=== PATIENT | female | born 1985 | race Caucasian/White ===

== ENCOUNTER 2016-10-08 19:34 | Inpatient (IN) | payer OTHER ==
[~2016-10-08] VITALS: Ht 165.1 cm; Wt 86.6 kg
[2016-10-08] MEDS ORDERED: Ondansetron 2 mg/mL 2 mL Inj IVPUSH PRN ×2 (19:50→21:50)
[2016-10-08] MEDS ORDERED: Carboprost 250 mCg/mL Inj IM PRN (19:50)
[2016-10-08] MEDS ORDERED: Oxytocin 10 Unit/mL Inj IM PRN (19:50)
[2016-10-08] MEDS ORDERED: Methylergonovine 0.2 mg/mL Inj IM PRN (19:50)
[2016-10-08] MEDS ORDERED: Sodium Chloride LOK Flush 10 mL Syringe IVFLUSH PRN (19:50)
[2016-10-08] MEDS ORDERED: Hemorrhage Kit, Post Partum XX ONE (19:50)
[2016-10-08] MEDS ORDERED: Lactated Ringer's 1,000 ML IV PRN (19:50)
[2016-10-08] MEDS ORDERED: fentaNYL-PF 50 mCg/mL 2 mL Inj IVPUSH PRN (19:50)
[2016-10-08] MEDS ORDERED: Oxytocin 30 Units/500 mL LR 30 UNITS in IV Premix 1 EACH IV PRN (19:50)
[2016-10-08 20:19] LABS: Mean Corpuscular Hemoglobin 23.3 pg (27.0-35.0); Mean Corpuscular Volume 74.8 fL (81-100)
--- NOTE | 2016-10-08 21:48 | PCM.HPANE ---
Patient Data Surgeon Admitting Provider:Saqib Ramsey MD Attending Provider:Saqib Ramsey MD Primary Care Physician:Saqib Ramsey MD Other Provider: Reason for Visit Term Labor Check TERM LABOR CHECK Ht/WT & BMI Body Mass Index Allergies Coded Allergies: Penicillins (Verified Allergy, Unknown, 12/05/14) Diabetes History Hx Diabetes?: No History Cardiovascular History: Denies:: Congestive Heart Failure Hypertension Respiratory History: Denies:: Tuberculosis Hx Diabetes: No Hx Alcohol Use: NoHx Substance Use: No Smoking Status: Never Smoker Have You Smoked inLast 12 mo: No Stop/Bang Risk Assessment Category Category 1A: Patient has history of documented sleep apnea, and HAS NOT received any narcotic, sedative or anesthesia administration during this stay. Category 1B: Patient has history of documented sleep apnea, and HAS received any narcotic , sedative or anesthesia administration during this stay Category 2: Patient has SUSPECTED Obstructive Sleep Apnea, and HAS received any narcotic , sedative or anesthesia administration during this stay. Category 3: Patient has SUSPECTED Obstructive Sleep Apnea and HAS NOT received narcotic, sedative or anesthesia administration during this stay. Category 4: Outpatient in Procedural Areas with known sleep apnea or who screen positive for High Risk via the STOP/BANG questionnaire. Exam Exam General Appearance: Alert, Oriented X3, Cooperative, No Acute Distress HEENT/AIRWAY: MP 2 Lungs: Clear to Auscultation Heart: Exam Unremarkable Meds/Labs/Diagnostics Labs Test 10/08/16 20:00 White Blood Count 8.5th/mm3 (3.8-10.1) Red Blood Count 3.77mil/mm3 (3.90-5.20) Hemoglobin 8.8g/dL (12.0-15.6) Hematocrit 28.2% (35.0-46.0) Mean Corpuscular Volume 74.8fL (81-100) Mean Corpuscular Hemoglobin 23.3pg (27.0-35.0) Mean Corpuscular Hemoglobin Concent 31.2% (32.0-37.0) Red Cell Distribution Width 15.2% (12.3-15.4) Platelet Count 247bil/L (150-400) Hematology Comments Blood Urea Nitrogen 9mg/dL (6-20) Creatinine 0.57mg/dL (0.57-1.00) Uric Acid 5.0mg/dL (2.6-7.2) Aspartate Amino Transf (AST/SGOT) 19U/L (0-50) Alanine Aminotransferase (ALT/SGPT) 12U/L (0-32) Plan Impression Patient chart reviewed, patient interviewed and anesthestic plan with risks, benefits, and alternatives discussed, and informed consent obtained. ASA Physical Status: ASA2 Mod Systemic Disease Anesthetic Plan: Epidural Bene/Risks/Altern/Consents: Yes HP Complete Prior to Induction: Yes Mac Erickson MD Oct 08, 2016 21:48
[2016-10-08] MEDS ORDERED: Lactated Ringer's 1,000 ML IV SCH (21:49)
[2016-10-08] MEDS ORDERED: Lactated Ringer's 500 ML IV ONE (21:49)
[2016-10-08] MEDS ORDERED: fentaNYL 2 mCg/mL-Bupiv 0.125% 100 ML EPIDURAL SCH (21:50)
[2016-10-08] MEDS ORDERED: Atropine 1 mg/10 mL (Code) Syringe IVPUSH PRN (21:50)
[2016-10-08] MEDS ORDERED: EPHEDrine Sulfate 50 mg/mL Inj IVPUSH PRN (21:50)
[2016-10-09] MEDS ORDERED: Sodium Chloride LOK Flush 10 mL Syringe IVFLUSH SCH (00:30)
--- NOTE | 2016-10-09 00:48 | HP ---
[address] [address] HISTORY AND PHYSICAL PATIENT: RADHA HERNANDEZ : 1985 MR#: [id number] ADMIT: 10/08/2016 JOB ID: [id number] [facility] NOTE: DATE: 10/08/2016 SUBJECTIVE: The patient is a 30-year-old, AB1, single woman, with three prior vaginal deliveries. She has been followed prenatally at [facility], see record for details. Due date is October 19, 2016, placing the patient on day of admission at 38-3/7 weeks along. course has been uncomplicated. In general, note only 15 pounds of weight gain in the , appropriate fundal height growth, negative group B Strep test status, rubella immune status, and Rh positive status. The patient received flu vaccination and Tdap during . The patient was noted to be mildly anemic with hematocrit 30.7 on July 18, 2016, and she was asked to use iron supplementation and/or iron rich foods plus vitamin daily. The patient spontaneously ruptured membranes, clear fluid, this evening. She came into the Center and was admitted with ruptured membranes confirmed, plus early uterine contractions. She was admitted for observation and anticipated vaginal , and she would very much like to have epidural before delivery. PHYSICAL EXAMINATION: On admission, height 65 inches, weight 194 pounds at last check in the office, normal blood pressure at last check in the office, mild elevation on admission; for example, with diastolic reading of 89, yet then coming down. Afebrile. Neck: No thyromegaly. Lungs: Clear to auscultation and percussion. Heart: Regular in rate and rhythm. Abdomen: Fundal height at last check 38.5 cm, consistent with known gestational age, positive heartbeat. Pelvic examination: Cervix initially in the 2 cm range, 50% effacement, vertex, spontaneous rupture of membranes confirmed, clear fluid. IMPRESSION: 1. A 38-3/7 weeks on admission. 2. Spontaneous rupture of membranes, clear fluid. 3. Early uterine contractions. 4. Negative group B Strep test. 5. Rubella immune status. 6. Rh positive status. 7. Up to date with Tdap and flu vaccination. 8. Reproductive history: a. 1st -vaginal delivery of 7 pound 4 ounce baby, at 40+ weeks along, epidural. b. 2nd -36 week vaginal delivery of 6 pound 9 ounce baby, epidural. Spontaneous rupture of membranes. Proceeded labor. c. 3rd -miscarriage. d. 4th -39 week vaginal delivery, 7 pound 3 ounce baby, epidural. Spontaneous rupture of membranes before labor onset. Note she more rapid labor than others. e. 5th -current. 9. Desires tubal ligation following delivery, for planned laparoscopic tubal ligation at 6+ weeks , tentatively scheduled for November 28 of this year. 10. Mild anemia noted in the third trimester. 11. Increased weight, although only 15 pounds of weight gain during the . 12. PENICILLIN allergy "assumed" (the patient's twin is allergic to penicillin). 13. History of bladder infection. 14. Family history of hypertension (brother, great grandmother), cystic fibrosis (nephew, the patient reports that she tested negative for carrier status), other cancer (details?, who?), and twins (mother of baby is a twin). PLAN: The patient is admitted to [facility] in the evening of October 08, 2016, with spontaneous rupture of membranes and early uterine contractions at 38-1/2 along in . She has preferred epidural anesthesia. Anticipating vaginal .
[2016-10-09] MEDS ORDERED: Lactated Ringer's 1,000 ML IV SCH (02:22)
[2016-10-09] MEDS ORDERED: Benzocaine (Dermoplast) 20% 60 Gm Spray TOPICAL PRN (02:25)
[2016-10-09] MEDS ORDERED: Influenza (Adult) Vaccine 0.5 mL Syringe IM ONE (02:25)
[2016-10-09] MEDS ORDERED: Hemorrhage Kit, Post Partum XX ONE (02:25)
[2016-10-09] MEDS ORDERED: Witch Hazel-Glycerin Pads TOPICAL PRN (02:25)
[2016-10-09] MEDS ORDERED: Methylergonovine 0.2 mg/mL Inj IM PRN (02:25)
[2016-10-09] MEDS ORDERED: Carboprost 250 mCg/mL Inj IM PRN (02:25)
[2016-10-09] MEDS ORDERED: Measles-Mumps-Rubella Vaccine 0.5 mL Inj SUBQ ONE (02:25)
[2016-10-09] MEDS ORDERED: LANOlin HPA 7 Gm Ointment TOPICAL PRN (02:25)
[2016-10-09] MEDS ORDERED: Oxytocin 10 Unit/mL Inj IM PRN (02:25)
[2016-10-09] MEDS ORDERED: Oxytocin 30 Units/500 mL LR 30 UNITS in IV Premix 1 EACH IV PRN (02:25)
[2016-10-09] MEDS ORDERED: TdaP Vaccine 0.5 mL Inj IM ONE (02:25)
[2016-10-09] MEDS: HYDROcodone-APAP 5-325 mg Tablet PO PRN ×4 (09:23→21:45)
[2016-10-10] MEDS: HYDROcodone-APAP 5-325 mg Tablet PO PRN ×2 (03:37→08:20)
[2016-10-10 07:03] LABS: Mean Corpuscular Volume 75.8 fL (81-100)
[2016-10-10] MEDS ORDERED: IBUP-1827 PO (10:58)
[2016-10-10] MEDS ORDERED: HYDR-4003 PO (10:58)
--- NOTE | 2016-10-10 10:58 | PCM.DIOB ---
Obstetrical Disch Instruction Dates of Hospitalization Date of Hospital Admission Oct 08, 2016 at 19:47 Providers Admitting Physician: Saqib Ramsey MD Primary Care Physician: Saqib Ramsey MD Attending Physician: Saqib Ramsey MD Discharge Diagnosis Problems: (1) Status: Acute ICD Code: Z33.1 Diet Discharge Diet: No restrictions Activity Discharge Activity-General: Pelvic Rest for 6 weeks Dressing and Incisional Care Hygiene: May shower, Perineal care, Sitz bath, Dermoplast spray, Witch Jessica pads, Ice Follow Up Plan Follow-up appointment: Weeks (Follow up in 6 weeks for checkup) Call your provider for: Fever or Chills, Shortness of breath, Heavy vaginal bleeding, Red painful breasts Saqib Ramsey MD Oct 10, 2016 10:58
[2016-10-10] MEDS ORDERED: FERR-83 PO (11:06)
[2016-10-10 11:18] VITALS: BP 111/79; PULSE 88; RESP 18
--- NOTE | 2016-10-11 03:10 | OP ---
[address] [address] OPERATIVE REPORT PATIENT: RADHA HERNANDEZ : 1985 MR#: [id number] ADMIT: 10/08/2016 JOB ID: [id number] DATE OF SURGERY: 10/09/2016 SURGEON: PREOPERATIVE DIAGNOSIS(ES): POSTOPERATIVE DIAGNOSIS(ES): [facility] NOTE: The patient was followed prenatally per Dr. Ramsey, see record. She ruptured membranes spontaneously at approximately 38-1/2 weeks along in her and developed uterine contractions, then progressing intensity and frequency. Cervix dilated from 2 cm to 3 cm and epidural was provided for pain management. Labor then progressed relatively rapidly through the active phase of labor. See complete cervical dilatation. The patient then learned to push very well, steadily bringing down the head to and then delivery, followed directly by the shoulders, body and extremities. Baby was active, crying and vigorous. After a brief delay, umbilical cord was clamped and cut and infant was taken to the warmer for cleanup per patient request. Cord blood was obtained for routine studies. Placenta with membranes were spontaneously expelled, intact. Uterus contracted well with massage plus Pitocin infusion. Blood loss was in the 150 cc range. There were no lacerations noted. Instrument, needle and sponge counts were all found to be correct, and procedure was; thus, complete. It certainly is anticipated that mother and baby will do very well during the timeframe. Saqib Ramsey MD [facility] CENTERZunilda
--- NOTE | 2016-10-11 08:11 | DIS ---
[address] [address] DISCHARGE SUMMARY PATIENT: RADHA HERNANDEZ : 1985 MR#: [id number] ADMIT: 10/08/2016 JOB ID: [id number] DIS: 10/10/2016 DISCHARGE DIAGNOSES: 1. A 38-1/2 week , delivered. 2. Spontaneous rupture of membranes. 3. Spontaneous labor onset. 4. Chronic anemia during . PROCEDURE PERFORMED DURING HOSPITALIZATION: 1. Epidural anesthesia. 2. Vaginal delivery. HOSPITAL COURSE: This patient was admitted to [facility], and ultimately went on to deliver vaginally with epidural anesthesia early in the morning of October 09, 2016. During the timeframe, the patient did well, with stable vitals, afebrile, with reasonable bleeding, ambulating and voiding, with significant cramping while nursing particularly, for which she used ibuprofen and Vicodin, and without leg pain or shortness of breath, and handling baby well. She wished to be discharged to home on the first day, and her request was granted. Note that she did have admission hemoglobin 8.8, with known anemia during , although she did not take the recommended iron therapy. hemoglobin was 7.9. The patient was slightly dizzy initially, although improving, and there was no worrisome blood loss. She reported that she was willing to take iron therapy at home. DISCHARGE PROGRAM: The patient will call p.r.n., yet otherwise she will follow up at six weeks for checkup. Note that she also planned for laparoscopic tubal ligation, and this has been scheduled in November. She will observe pelvic rest for six weeks. DISCHARGE MEDICATIONS: Include Kalida, ibuprofen, and ferrous sulfate.
== END 2016-10-10 12:02 | disposition home or self-care (01) | DRG 560 ==
LOC: FBCO 19:34 → FBC 19:47
PROVIDERS: ADMIT Obstetrics & Gynecology; ATTEND Obstetrics & Gynecology
PROC: 10E0XZZ Delivery of Products of Conception, External Approach (ICD-10-PCS; principal; 2016-10-09)
DX: O99.02 Anemia complicating childbirth (principal); D64.9 Anemia, unspecified; Z37.0 Single live birth; Z3A.38 38 weeks gestation of pregnancy

== ENCOUNTER 2016-11-28 09:11 | Day surgery (SDC) | payer OTHER ==
--- NOTE | 2016-11-26 19:31 | HP PRE OP ---
[address] [address] PREOPERATIVE HISTORY AND PHYSICAL PATIENT: RADHA HERNANDEZ : 1985 MR#: [id number] ADMIT: 11/28/2016 JOB ID: [id number] IDENTIFICATION: The patient is a 30-year-old, G5, P4, AB 1, single woman. CHIEF COMPLAINT: Desires sterilization by bilateral salpingectomy. HISTORY OF PRESENT ILLNESS: This patient had vaginal , on October 09, 2016. She has been certain that she has not wanted additional children beyond the four that she has and her significant other is also certain. He has not been willing to do so vasectomy at this point in time, although he has considered it. They have agreed that she will proceed ahead with tubal ligation, understanding that it is a major surgery, with risks of bleeding, infection, wound problems, postoperative pain, injury to the urinary tract and bowel, anesthetic risks and potential need for laparotomy if some type of complication was to occur. They realize that there is thus not a guarantee that complications would not occur although typically this is an outpatient surgery. Note that they realize that there is a chance of sterilization failure although very unlikely in that she has requested bilateral salpingectomy as opposed to simply tubal ligation. She would very much like the tubes to be removed to help further reduce sterilization failure as well as to reduce the risk of adnexal cancer. She has understood that this would mean that there would be no tubes for reconstruction if she changed her mind although she is certain that she will not and she does appear to be a good sterilization candidate per discussion with her. She knows that in vitro fertilization would still be a consideration if she changed her mind but she is absolutely certain that she does not want to have additional children. In summary, then, the patient will be admitted to [facility] on November 28, 2016, on which day she will undergo laparoscopic bilateral salpingectomy. PHYSICAL EXAMINATION: On admission, weight 170 pounds. Blood pressure 120/78. Neck: No thyromegaly. Lungs clear to auscultation and percussion. Heart: Regular in rate and rhythm. Abdomen nontender, no mass. No surgical scarring. Pelvic examination: Vulva, vagina and cervix, no obvious epithelial abnormality. Bimanual examination: No obvious uterine or adnexal mass. IMPRESSION: 1. Desires sterilization by laparoscopic bilateral salpingectomy. 2. by 1-1/2 months, doing well. 3. Nursing mother (pumping). 4. Current control--condoms. 5. Reproductive history--vaginal delivery x4, one miscarriage. 6. History of cystitis. 7. Penicillin allergy concern per patient (patient's twin is allergic to penicillin). 8. Family history of hypertension (brother, great grandmother), cystic fibrosis (nephew, the patient reports that she tested negative for carrier status), other cancer (details?, who?), and twins (mother of baby is a twin), and penicillin allergy (patient's twin). PLAN: The patient will be admitted to [facility] on November 28, 2016, on which day she will undergo laparoscopic bilateral salpingectomy for sterilization per her request. Note that she has signed HS consent, sterilization consent for tubal ligation/tubal excision back on August 22, 2016, and thus the necessary at least 30 days have passed prior to performance of sterilization. [facility] authorization applies to bilateral salpingectomy per their report to our director day care center.
[2016-11-28] VITALS (10 sets, daily range): BP systolic 100–120; BP diastolic 64–82; PULSE 60–88; RESP 12–18; O2SAT 95–100
[~2016-11-28] VITALS: Ht 165.1 cm; Wt 73.5 kg
--- NOTE | 2016-11-28 07:42 | PCM.HPANE ---
Patient Data Surgeon Admitting Provider: Attending Provider:Saqib Ramsey MD Primary Care Physician:Farooq Parry MD Other Provider:Vandana [place] Anesthesia Reason for Visit Desires Sterilization Ht/WT & BMI Height (Feet): 5 Height (Inches): 5 Weight (Kilograms): 80 Body Mass Index 29.00 Allergies Coded Allergies: Penicillins (Verified Allergy, Unknown, UNKNOWN (FAMILY HX OF--TWIN ALLERGIC TO PCN), 11/27/16) Past Anesthesia History Anesthesia History: Denies:: Fam Anesthesia Reaction, Fam Malignant Hypertherm Diabetes History Hx Diabetes?: No MRSA MRSA: No Medications Discontinued Scripts Ferrous Sulfate 325 Mg [id number] Mg PO BID 90 Days Ref 1 Prov:Saqib Ramsey MD 10/10/16 Hydrocodone-Acetaminophen 5-325 mg 1 Each Tablet1-2 Tablet PO Q4H PRN For Mild Pain #30 TABLET Prov:Saqib Ramsey MD 10/10/16 Ibuprofen 600 Mg [id number] Mg PO Q6H PRN For Mild Pain #30 TABLET Prov:Saqib Ramsey MD 10/10/16 History History of ENT Problems?: Yes Hx of Heart Problems?: No Cardiovascular History: Denies:: Congestive Heart Failure Heart Murmur Hypertension Hx of Respiratory Problem?: No Respiratory History: Denies:: Tuberculosis Use of C-PAP Machine Hx Neurologic Problems?: No Hx of GI Problems?: No Hx of Problems?: Yes Genitourinary History: Positive for:: Urinary Tract Infection (HX OF cystitis) Female Hx: Denies:: Currently (S/P L&D 10/08/2016 HX MISSED AB ) Skin History: Denies:: History Skin Disorders? Pressure Ulcers Hx Musculoskeletal Problems?: No Hx of Psycho/Social Problems?: No Hx Surgeries?: No Hx Any Other Health Problems?: No Other History: Positive for:: Hospitalization (CHILDBIR[facility]) Denies:: Cancer Endocrine Disease Thyroid Disease Hx Diabetes: No Hx Alcohol Use: NoHx Substance Use: No Smoking Status: Never Smoker Have You Smoked inLast 12 mo: No Stop/Bang S-Snoring: Do You Snore Loudly: No T-Tired: feel tired, fatigued: No O-Obsered: Observed not breath: No P-Blood Pressure: treated: No B- Body Mass Index > 35 kg/m2: No A- Age over 50: No N- Neck Large Circumference: No G- Gender Male: No PRINCESS Total Score: 0 Risk Assessment Category Category 1A: Patient has history of documented sleep apnea, and HAS NOT received any narcotic, sedative or anesthesia administration during this stay. Category 1B: Patient has history of documented sleep apnea, and HAS received any narcotic , sedative or anesthesia administration during this stay Category 2: Patient has SUSPECTED Obstructive Sleep Apnea, and HAS received any narcotic , sedative or anesthesia administration during this stay. Category 3: Patient has SUSPECTED Obstructive Sleep Apnea and HAS NOT received narcotic, sedative or anesthesia administration during this stay. Category 4: Outpatient in Procedural Areas with known sleep apnea or who screen positive for High Risk via the STOP/BANG questionnaire. Exam Exam General Appearance: Alert, Oriented X3, Cooperative, No Acute Distress HEENT/AIRWAY: MP 1 Lungs: Normal Air Movement Heart: Regular Rate/Rhythm Plan Impression Patient chart reviewed, patient interviewed and anesthestic plan with risks, benefits, and alternatives discussed, and informed consent obtained. ASA Physical Status: ASA1 Normal Healthy Anesthetic Plan: GA Bene/Risks/Altern/Consents: Yes HP Complete Prior to Induction: Yes Lyubov Epperson DO Nov 28, 2016 07:42
[2016-11-28] MEDS ORDERED: fentaNYL-PF 50 mCg/mL 2 mL Inj ONE (09:12)
[2016-11-28] MEDS ORDERED: Dexamethasone 4 mg/mL Inj ONE (09:12)
[2016-11-28] MEDS ORDERED: Propofol 10,000 mCg/mL 20 mL Inj ONE (09:12)
[2016-11-28] MEDS ORDERED: Ondansetron 2 mg/mL 2 mL Inj ONE (09:12)
[2016-11-28] MEDS: Lactated Ringer's 1,000 ML IV SCH ×2 (09:23→11:13)
[2016-11-28] MEDS ORDERED: Bupivacaine-MPF 0.5% W/EPI 30 mL Inj INFILTRATE ONE (09:59)
[2016-11-28] MEDS ORDERED: Lactated Ringer's 500 ML IV PRN (11:08)
[2016-11-28] MEDS ORDERED: Lactated Ringer's 1,000 ML IV SCH (11:08)
[2016-11-28] MEDS ORDERED: fentaNYL-PF 50 mCg/mL 2 mL Inj IVPUSH PRN (11:10)
[2016-11-28] MEDS ORDERED: Ondansetron 2 mg/mL 2 mL Inj IVPUSH PRN ×2 (11:10→12:40)
[2016-11-28] MEDS ORDERED: HYDROmorphone 1 mg/mL Inj IVPUSH PRN ×2 (11:10→12:40)
[2016-11-28] MEDS ORDERED: MetoCLOpramide 5 mg/mL 2 mL Inj IVPUSH PRN ×2 (11:10→12:40)
[2016-11-28] MEDS ORDERED: Bupivacaine-MPF 0.5% W/EPI 30 mL Inj INJ ONE (11:45)
--- NOTE | 2016-11-28 13:40 | PCM.ANEP1 ---
Post Anesthesia Phase 1 PACU Phase 1 Assessment Vital Signs Vital Signs Date Time Temp Pulse Resp B/P Pulse Ox O2 Delivery O2 Flow Rate FiO2 11/28/16 13:15 36.4 63 12 103/64 98 Room Air 11/28/16 13:05 76 14 111/72 96 Room Air 11/28/16 13:00 36.3 78 18 100/82 95 Room Air 11/28/16 12:55 74 18 117/78 96 Room Air 11/28/16 12:50 84 17 110/75 96 Room Air 11/28/16 12:45 88 14 114/77 97 Room Air 11/28/16 12:40 88 12 120/77 99 Room Air 11/28/16 12:37 36.1 87 12 117/80 100 Simple Mask 8 11/28/16 09:34 36.2 60 17 104/69 100 Room Air Anesthetic Administered: GA Level of Alertness: Awake, talking SIVLERIO's with Equal Strength: Yes Pain: No Nausea or Vomiting: No Oxygen Delivery: Simple Mask Lungs: Normal Air Movement Complications: No Lyubov Epperson DO Nov 28, 2016 13:40
[2016-11-28] MEDS ORDERED: oxyCODONE-Acetamin 5-325 mg Tablet PO ONE (13:57)
[2016-11-28] MEDS ORDERED: oxyCODONE-Acetamin 5-325 mg Tablet PO PRN (14:00)
--- NOTE | 2016-11-29 23:58 | OP ---
[address] [address] OPERATIVE REPORT PATIENT: RADHA HERNANDEZ : 1985 MR#: [id number] ADMIT: 11/28/2016 JOB ID: [id number] DATE OF SURGERY: 11/28/2016 SURGEON: Saqib Ramsey MD ANESTHESIA: General. PREOPERATIVE DIAGNOSIS(ES): Desires sterilization by laparoscopic bilateral tubal excision (salpingectomies). POSTOPERATIVE DIAGNOSIS(ES): Desires sterilization by laparoscopic bilateral tubal excision (salpingectomies). PROCEDURE PERFORMED: Laparoscopic bilateral salpingectomies. FINDINGS AT SURGERY: Uterus, fallopian tubes and ovaries were normal. At procedure's close, each fallopian tube had been excised and there was no bleeding occurring internally. Blood loss during the case was scant. It certainly is anticipated that patient will do very well during postop timeframe. PROCEDURE IN DETAIL: The patient was placed in supine position on the operating table and general anesthesia was induced. She was then very carefully repositioned into the low dorsal lithotomy position and prepped and draped in the usual sterile manner. After appropriate time-out was taken, a TAY cannula was secured in place within the cervix/uterus. Attention was then directed to the abdomen, where a short transverse/semilunar incision was made in the subumbilical region, with this incision carried through skin, subcutaneous tissues and fascial layer. Peritoneal cavity was then carefully entered using blunt dissection, and the Marilee trocar sheath was secured in place. Laparoscope was introduced, CO2 and light sources connected, and video laparoscopy accomplished with findings as noted above. A short transverse additional incision was made at the hairline at the midline and a 5 mm trocar sheath was secured in place through the second puncture site. The grasping instrument was advanced through the lower port to facilitate bilateral tubal excision as had been requested by the patient. The distal aspect of each tube was elevated, followed by serial electrocoagulation and division of the attachment structures of each fallopian tube working from distal to proximal. Ultimately, all that remained attached was the fallopian tubes themselves where they entered the uterus at the cornual region. The proximal fallopian tube segments were them electrocoagulated and divided, making sure to electrocoagulate any tiny residual tubal segment for hemostatic, as well as destructive purposes. Each fallopian tube, once excised, was then removed through the upper trocar sheath without difficulty and tubes were sent together for histologic analysis. Final pelvic inspection demonstrated no bleeding sites, and uterus and ovaries remained, although each tube had been excised. All instruments removed from the abdomen and CO2 gas was allowed to escape, and instrument, sponge and needle counts at multiple times during the case were all found to be correct. The subumbilical fascial incision was closed in purse-string fashion using 0-Vicryl suture, followed by closure of each incision with interrupted vertical mattress stitches in subcuticular/subcutaneous location. Marcaine with epinephrine solution was then injected into each incision at the skin level and then Mastisol solution was spread in the vignesh-incisional region and allowed to dry, followed by placement of half-inch Steri-Strips and then overlying bandages. The TAY cannula was then removed from the cervix/uterus, intact. The patient was returned to supine position, awakened, and taken to recovery room. ESTIMATED BLOOD LOSS: Scant. COMPLICATIONS: None. PROGNOSIS: Good for surgical recovery. KARMAD
--- NOTE | 2016-11-30 11:28 | PATH ---
SURGICAL PATHOLOGY Attending Physician:Saqib Ramsey M.D CASE STATUS: Signed Out PATIENT NAME: RADHA HERNANDEZ PID: [id number] : 1985 DATE COLLECTED:11/28/2016 00:00 SPECIMEN: Fallopian Tube, Sterilization CLINICAL HISTORY: DESIRES STERILIZATION 1). LEFT AND RIGHT FALLOPIAN TUBE FINAL DIAGNOSIS: 1.SEGMENTS OF LEFT AND RIGHT FALLOPIAN TUBES (STERILIZATION PROCEDURE): NO SIGNIFICANT PATHOLOGIC CHANGE. ICD10 CODE Z30.2 GROSS DESCRIPTION: The specimen is received in one formalin filled container labeled with the patient's name, sublabeled "left and right fallopian tube" and consists of 2 dark mcgowan-brown cylindrical shaped portions of tissue. The first measures 6.0 x 0.8 x 0.8 CM. The specimen is inked blue. 4 outside sales account representative sections are submitted in cassette A. The second piece measures 6.0 x 0.8 x 0.8 CM. The specimen is inked black. 4 outside sales account representative sections are submitted in cassette B. 11/29/2016 [facility] MICRO DESCRIPTION: See diagnosis. ICD-9 CODES: CPT CODES: 1: 17361 Electronically Signed Out Quoc Hernandez MD [facility] [address], [place] [address] Technical component performed at [facility], [address] [place] [address] Ave[address], [place], [address]
== END 2016-11-28 23:59 | disposition home or self-care (01) ==
LOC: SAS 09:11
PROVIDERS: ATTEND Obstetrics & Gynecology
DX: Z30.2 Encounter for sterilization (principal)
CPT/HCPCS: 58661; 88302; J1100; J1170; J1885; J2250; J2405; J3010; J7120